=== PATIENT | female | born 1970 | race Two or more races ===

== ENCOUNTER 2016-09-25 19:25 | Emergency (ER) | payer OTHER ==
--- NOTE | ~2016-09-25 | EKG ---
PATIENT: JUNIE GRANADO UNIT #: [id number] Ventricular Rate: 71 BPM Atrial Rate: 71 BPM P-R Interval: 216 ms QRS Duration: 82 ms Q-T Interval: 390 ms QTC Calculation(Bezet): 423 ms P [place]: 61 degrees Calculated R [place]: 46 degrees Calculated T [place]: 34 degrees Diagnosis Line: Sinus rhythm with 1st degree A-V block Diagnosis Line: Otherwise normal ECG Diagnosis Line: No previous ECGs available Diagnosis Line: Confirmed by NEGRITO CALDERON MD ([id number]) on 09/26/2016 Diagnosis Line: 9:39:41 AM INTERPRETING MD: KVNG PORTILLO
--- NOTE | ~2016-09-25 | US63 ---
[facility] A Service of [facility] & [facility] / [facility] RADIOLOGY TEXT RESULTS PATIENT: JUNIE GRANADO LOCATION: [place] : 72 UNIT #: [id number] AGE: [address]: Crescencio Lovell MD SEX: F ORDER DR: [id number] [facility] [address] [place], [place] [address] [id number] E MR#: [id number] #: [id number] NAME: JUNIE GRANADO : 1970 SEX: F STUDY DATE/TIME: 09/25/2016 20:57 UNIT: [place] ROOM: STUDY DESCRIPTION: US /Mat >14Wk / Attending Physician: Crescencio Lovell M.D. Ordering Physician: Crescencio Lovell M.D. Primary Care Physician: Primary Care Physician No MEDICAL IMAGING REPORT This report is preliminary unless electronic signature is present EXAM Maternal ultrasound greater than 14 weeks COMPARISON None INDICATIONS 46-year-old female with pelvic pain for 3 months. Quantitative beta-hCG of 26,513 mIU/mL. FINDINGS Uterus measures approximately 10.7 cm x 5.8 cm x 11.1 cm. There is a single, living intrauterine . The placenta is anterior. There is suggestion of a leiomyoma within the posterior mid wall of the uterus measuring up to 6 cm. heart rate is 163 bpm. There is no convincing evidence of perigestational hemorrhage. Muse-rump length is approximately 7 cm, consistent with gestational age of 13 weeks and 2 days, plus or minus 8 days. Please note that a full anatomic survey was not performed. Head circumference, abdominal circumference and femur length are in agreement with the gestational age obtained from the crown-rump length. IMPRESSION 1. Single, living intrauterine with normal heart rate. There is suggestion of a leiomyoma along the posterior wall of the uterus. The placenta is anterior and there is no evidence of perigestational hemorrhage. The suspected leiomyoma may measure up to as much as 6 cm. 2. Estimated gestational age is 13 weeks and 2 days, plus or minus 8 days by crown-rump length. Please note that a full anatomic survey was not performed and formal outpatient anatomic survey is recommended in addition to standard obstetric followup. [facility] A Service of [facility] & [facility] / [facility] RADIOLOGY TEXT RESULTS PATIENT: JUNIE GRANADO LOCATION: [facility] : [birth year] UNIT #: [id number] AGE: [address]: Crescencio Lovell MD SEX: F ORDER DR: Dictated by... José Miguel Jain M.D. THIS IS AN ELECTRONICALLY VERIFIED REPORT José Miguel Jain M.D. at 09/30/2016 7:35 PM STEPH/jorje TD: 09/26/2016 00:20 JOB #: [id number] MEDICAL IMAGING REPORT Page 1 of 1 COPY
--- NOTE | ~2016-09-25 | CR72 ---
[facility] A Service of [facility] & [facility] RADIOLOGY TEXT RESULTS PATIENT: JUNIE GRANADO LOCATION: [facility] : 72 UNIT #: [id number] AGE: [address]: Crescencio Lovell MD SEX: F ORDER DR: [id number] [facility] [address] [place], [place] [address] [id number] E MR#: [id number] Acc #: [id number] NAME: JUNIE GRANADO : 1970 SEX: F STUDY DATE/TIME: 09/25/2016 18:06 UNIT: [facility] ROOM: STUDY DESCRIPTION: CR Chest Single View Portable Attending Physician: Crescencio Lovell M.D. Ordering Physician: Crescencio Lovell M.D. Primary Care Physician: No Primary Care Physician MEDICAL IMAGING REPORT This report is preliminary unless electronic signature is present EXAM Single view portable chest HISTORY Shortness of breath beginning today with dizziness and abdominal pain for 3 days. FINDINGS A single AP portable view of the chest shows both lungs to be clear. The heart is normal in size. The mediastinal contour is normal. No significant bone abnormalities are seen. IMPRESSION Normal portable chest. Dictated by... Michael Ley M.D. THIS IS AN ELECTRONICALLY VERIFIED REPORT Michael Ley M.D. at 09/26/2016 2:13 PM MERRICK/olga TD: 09/25/2016 21:10 JOB #: [id number] MEDICAL IMAGING REPORT Page 1 of 1 COPY
[2016-09-25 18:23] LABS: BASOPHIL% 0.5 % (0-2.5); DIFF IND NO; EOSINOPHIL% 0.4 % (0.0-7.0); HEMATOCRIT 34.3 % (35.0-45.0); HEMOGLOBIN 11.4 gm/dL (12.0-16.0); LYMPHOCYTE# 2.1 X10e3 (1.0-3.5); LYMPHOCYTE% 30.9 % (17.0-45.0); MEAN CELL VOLUME 86.4 FL (83-96); MEAN CORPUSCULAR HEMOGLOBIN 28.7 PG (28-34); MEAN CORPUSCULAR HGB CONC 33.2 g/dL (30-36); MEAN PLATELET VOLUME 8.4 FL (6.5-11.5); MONOCYTE# 0.5 X10e3 (0-1.0); MONOCYTE% 7.3 % (3.0-12.0); NEUTROPHIL# 4.1 X10e3 (1.5-7.1); NEUTROPHIL% 60.9 % (40-75); PLATELET COUNT 205 X10e3 (140-420); RED BLOOD COUNT 3.97 X10e (3.90-5.30); RED CELL DISTRIBUTION WIDTH 14.5 % (11.0-15.5); WHITE BLOOD COUNT 6.7 X10e3 (4.0-10.5)
[2016-09-25 19:00] LABS: ALBUMIN SERUM 3.7 g/dL (3.5-5.0); BILIRUBIN, DIRECT 0.1 mg/dL (0.0-0.2); BILIRUBIN,INDIRECT 0.5 mg/dL (0.0-0.9); BILIRUBIN,TOTAL 0.6 mg/dL (0.2-2.0); CALCIUM SERUM 8.4 mg/dL (8.4-10.2); CREATININE SERUM 0.3 mg/dL (0.6-1.4); GLOM FILT RATE Estimated 138.3 mL/min (>60); POTASSIUM 3.6 mmol/L (3.5-5.1); PROTEIN TOTAL SERUM 6.8 g/dL (6.0-8.3)
[2016-09-25 19:00] LABS: POC - CKMB <1.0 ng/mL (0.0-7.9); POC - TROPONIN <0.05 ng/mL (<=0.05)
[2016-09-25 19:11] LABS: URINE SOURCE CLEAN CATCH
[2016-09-25 19:16] LABS: URINE APPEARANCE CLEAR; URINE BILIRUBIN NEG (NEG); URINE BLOOD NEG (NEG); URINE COLOR YELLOW; URINE GLUCOSE NEG (NEG); URINE KETONE NEG (NEG); URINE LEUKOCYTE ESTERASE NEG (NEG); URINE NITRATE NEG (NEG); URINE PROTEIN NEG (NEG); URINE SPECIFIC GRAVITY 1.006 (1.003-1.035); URINE UROBILINOGEN 0.2 MG/DL (NEG)
[2016-09-25 19:26] LABS: CULTURE INDICATED? NO
== END 2016-09-25 22:05 | disposition home or self-care (01) ==
LOC: CED 19:25
PROVIDERS: Emergency Medicine
DX: O99.89 Other specified diseases and conditions complicating pregnancy, childbirth and the puerperium (principal); R10.9 Unspecified abdominal pain; R42 Dizziness and giddiness
CPT/HCPCS: 36415; 71010; 76805; 80048; 80076; 81003; 82553; 82947; 83690; 84484; 84702; 84703; 85025; 93005; 96361; 96372; 96374; 99284; J0500; J2405